=== PATIENT | male | born 1955 | race Caucasian/White ===

== ENCOUNTER 2016-05-29 11:18 | Emergency (ER) | payer MEDICAID ==
[~2016-05-29] VITALS: Ht 177.8 cm; Wt 61.2 kg
[2016-05-29] MEDS ORDERED: SODIUM CHLORIDE 0.9% 1,000 ML IVB ONE (11:53)
[2016-05-29] MEDS ORDERED: ASPirin 81 mg TAB PO ONE (12:00)
[2016-05-29 12:27] LABS: INR 0.98 (0.9-1.15); Partial Thromboplastin Time 29.2 sec (22.64-33.71); Prothrombin Time 10.6 sec (9.37-12.3)
[2016-05-29 12:33] LABS: Albumin 4.1 g/dL (3.4-5.0); Alkaline Phosphatase 128 U/L (45-117); Anion Gap 11 (5-15); Aspartate Aminotransferase 46 U/L (15-37); Bilirubin, Total 0.5 mg/dL (0.2-1.0); Blood Urea Nitrogen 14 mg/dL (7-18); Calcium 8.6 mg/dL (8.5-10.1); Carbon Dioxide 24 mmol/L (21-32); Chloride 106 mmol/L (98-107); GFR African American 148 mL/min; GFR Non-African American 123 mL/min; Glucose 82 mg/dL (74-106); Magnesium 2.4 mg/dL (1.6-2.6); Potassium 4.1 mmol/L (3.5-5.1); Sodium 141 mmol/L (136-145)
[2016-05-29 12:41] LABS: Basophils # (auto) 0 uL; Basophils % (auto) 0.2 % (0.0-2.0); Eosinophils # (auto) 0 uL; Eosinophils % (auto) 0.2 % (0.0-7.0); Hematocrit 42.8 % (41.0-53.0); Hemoglobin 14.4 g/dL (13.5-17.5); Lymphocytes # (auto) 1.4 uL; Lymphocytes % (auto) 31.9 % (10.0-50.0); Mean Corpuscular Hemoglobin 27.5 pg (28.0-32.0); Mean Corpuscular Hgb Conc. 33.6 g/dL (32.0-36.0); Mean Corpuscular Volume 81.8 fL (80.0-100.0); Mean Platelet Volume 8.8 fL (7.4-10.4); Monocytes # (auto) 0.4 uL; Monocytes % (auto) 8.7 % (0.0-12.0); Neutrophils # (auto) 2.7 uL; Platelet Count (auto) 212 10^3/uL (140-450); Red Cell Distribution Width 17.6 % (11.6-16.0); White Blood Cell 4.5 10^3/uL (4.4-10.8)
[2016-05-29 13:42] VITALS: BP 111/32
[2016-05-29] MEDS ORDERED: ACETAMINOPHEN 325 MG TAB PO ONE (13:45)
== END 2016-05-29 16:36 | disposition home or self-care (01) ==
LOC: ER 11:19
DX: R07.89 Other chest pain (principal); B34.9 Viral infection, unspecified; Z77.22 Contact with and (suspected) exposure to environmental tobacco smoke (acute) (chronic); Z88.0 Allergy status to penicillin
CPT/HCPCS: 36415; 71010; 80053; 83735; 84484; 85025; 85610; 85730; 94761; 96360; 96361; 99285; J7030

== ENCOUNTER 2016-10-30 06:34 | Day surgery (SDC) | payer MEDICAID ==
[~2016-10-30] VITALS: Ht 177.8 cm; Wt 74.4 kg
[~2016-10-30 06:34] MED LIST: ACET-1158 PO; ASPI325T4 PO; ASPI81TA27 PO; IBUP200T76 PO; IBUP400T21 PO; OMEG600C2 PO
[2016-10-30] MEDS ORDERED: LIDOCAINE 2%HCL (LOCAL ANESTH.) INJ 20ML MDV ONE (07:22)
[2016-10-30] MEDS ORDERED: IODIXANOL 320MG/ML 100ML BTL IV ONE (07:22)
[2016-10-30] MEDS ORDERED: VERAPAMIL 2.5MG/ML INJ 2ML VIAL IV ONE (08:15)
[2016-10-30] MEDS ORDERED: fentaNYL CITRATE 100 MCG/2 ML VL ONE (08:15)
[2016-10-30] MEDS ORDERED: SODIUM CHL 0.9% 0 ML ONE (08:15)
[2016-10-30] MEDS ORDERED: MIDAZOLAM HCL 1MG/1ML-2 ML VIAL ONE (08:15)
[2016-10-30] MEDS ORDERED: ANGIOMAX 250 MG VIAL IV ONE (08:15)
[2016-10-30] MEDS ORDERED: IOHEXOL 350 MG/ML 100ML IJ ONE (08:44)
[2016-10-30] MEDS ORDERED: ACETAMINOPHEN 500 MG TAB PO ONE ×2 (11:50→12:15)
== END 2016-10-30 13:30 | disposition home or self-care (01) ==
LOC: CATH 06:34
PROVIDERS: ATTEND Internal Medicine
DX: I20.0 Unstable angina (principal); I34.0 Nonrheumatic mitral (valve) insufficiency; F10.99 Alcohol use, unspecified with unspecified alcohol-induced disorder; Z90.49 Acquired absence of other specified parts of digestive tract; Z88.0 Allergy status to penicillin; Z79.82 Long term (current) use of aspirin
CPT/HCPCS: 93458; C1760; C1769; C1894; J1644; J3010; J7030; Q9967; 93005; 99152; 99153; J2250